=== PATIENT | male | born 1955 | race Caucasian/White ===

== ENCOUNTER 2025-10-17 10:26 | Inpatient (IN) | payer MEDICARE, MEDICAID ==
[~2025-10-17] VITALS: Ht 182.9 cm; Wt 133.4 kg
[~2025-10-17 10:26] MED LIST: AMLO2.5T45 MT; ASCO500C18 MT; ATOR10TA MT; BACL20TA MT; DOCU-138 MT; FURO-152 MT; GABA800T97 MT; IBUP-1455 MT
[2025-10-17] MEDS: SODIUM CHLORIDE 0.9% 1,000 ML IV ONE ×2 (10:57→14:28)
[2025-10-17 11:30] LABS: HEMATOCRIT. 34.0 % (42.0-52.0); HEMOGLOBIN. 11.2 g/dL (14.0-18.0); MEAN PLATELET VOLUME 8.4 fl (7.4-10.4); PLATELET 226 x1000/uL (130-400); RED BLOOD CELL COUNT 3.75 mill/uL (4.7-6.1); RED CELL DISTRIBUTION WIDTH 15.3 % (11.6-14.6)
[2025-10-17] MEDS: PIPERACILLIN/TAZO 3.375G/50ML 50 ML IV ONE (11:45)
[2025-10-17] MEDS: SODIUM CHLORIDE 0.9% (SEPSIS BOLUS) IV ONE (11:47)
[2025-10-17] MEDS: VANCOMYCIN 1G PREMIX 200 ML IV ONE (11:48)
[2025-10-17 11:52] LABS: TROPONIN I HIGH SENSITIVITY 27 ng/L (3.0-53)
[2025-10-17 12:21] LABS: ASPARTATE AMINOTRANSFERASE 35 IU/L (<34)
[2025-10-17 12:22] LABS: BILIRUBIN DIRECT 0.2 mg/dL (<=3.0); BILIRUBIN TOTAL 0.4 mg/dL (0.1-1.0); PROTEIN TOTAL 7.5 g/dL (6.0-8.3)
[2025-10-17 12:24] LABS: CREATININE 5.1 mg/dL (0.6-1.3); UREA NITROGEN BLOOD 150 mg/dL (9-23)
[2025-10-17] MEDS ORDERED: LORAZEPAM 2MG/ML UD SYRINGE IV PRN (13:15)
[2025-10-17] MEDS ORDERED: ACETAMINOPHEN 325MG TABLET PO PRN (13:15)
[2025-10-17] MEDS ORDERED: IPRATROPIUM/ALBUTEROL 0.5-3(2.5)MG/3ML NEB HHN PRN (13:15)
[2025-10-17] MEDS ORDERED: IBUPROFEN 600MG TABLET PO SCH (13:30)
[2025-10-17 14:09] LABS: PHOSPHORUS 9.3 mg/dL (2.5-4.9)
[2025-10-17] MEDS: FUROSEMIDE 20MG TABLET PO SCH (14:17)
[2025-10-17] MEDS: FERROUS SULFATE 325MG TABLET PO SCH (14:17)
[2025-10-17] MEDS: BACLOFEN 10MG TABLET PO SCH (14:17)
[2025-10-17] MEDS: DOCUSATE SODIUM 250MG CAPSULE PO NR (14:18)
[2025-10-17] MEDS: SODIUM CHLORIDE 0.9% 500 ML IV NR (14:18)
[2025-10-17] MEDS: PANTOPRAZOLE SODIUM 40 MG/VIAL IV SCH (14:18)
[2025-10-17] MEDS: AMLODIPINE 5MG TABLET PO NR (14:28)
[2025-10-17 15:18] LABS: CLARITY URINE TURBID (CLEAR); COLOR URINE DARK YELLOW (YELLOW); GLUCOSE URINE NEGATIVE (NEGATIVE); KETONES URINE NEGATIVE (NEGATIVE); LEUKOCYTE ESTERASE URINE 3+ (NEGATIVE); NITRITE URINE POSITIVE (NEGATIVE); OCCULT BLOOD URINE 3+ (NEGATIVE); PH URINE 8.0 (4.5-8.0); PROTEIN URINE 3+ (NEGATIVE); SPECIFIC GRAVITY URINE 1.015 (1.005-1.030); UROBILINOGEN URINE 1.0 E.U./dL (0.2-1.0)
[2025-10-17 15:23] LABS: SODIUM URINE RANDOM 49 mEq/L
[2025-10-17 15:30] LABS: *AMPHETAMINES SCREEN URINE NEGATIVE (NEGATIVE); *BARBITURATES SCREEN URINE NEGATIVE (NEGATIVE); *BENZODIAZEPINES SCREEN URINE NEGATIVE (NEGATIVE); *COCAINE SCREEN URINE NEGATIVE (NEGATIVE); CANNABINOID URINE SCREEN PRESUMPTIVE POSITIVE (NEGATIVE); ECSTASY MDMA SCREEN URINE NEGATIVE (NEGATIVE); METHADONE URINE SCREEN NEGATIVE (NEGATIVE); OPIATES URINE SCREEN NEGATIVE (NEGATIVE); PHENCYCLIDINE URINE SCREEN NEGATIVE (NEGATIVE)
[2025-10-17] MEDS: MIDODRINE HCL 2.5MG TABLET PO SCH (15:36)
[2025-10-17 15:49] LABS: OSMOLALITY URINE 460 mOsm/kg (500-850)
[2025-10-17 16:10] LABS: BACTERIA URINE 4+; SQUAMOUS EPITHELIAL CELL URINE FEW /lpf (RARE/1+); YEAST URINE NONE SEEN
[2025-10-17 16:12] LABS: WBC URINE TNTC /hpf (0-2)
[2025-10-17 17:48] LABS: INR 1.4
[2025-10-17 17:56] LABS: BAND% 1.0 % (1.0-6.0); LYMPHOCYTES % MANUAL 7.0 % (20.0-50.0); MONOCYTES % MANUAL 3.0 % (2.0-8.0); NEUTROPHILS % MANUAL 89.0 % (45.0-75.0); PLATELET ESTIMATE NORMAL
[2025-10-17 20:00] VITALS: BP 145/89; PULSE 98; RESP 20; TEMP 36.8; O2SAT 96
[2025-10-17] MEDS: ACETAMINOPHEN 325MG TABLET PO PRN (20:25)
[2025-10-17] MEDS: ATORVASTATIN CALCIUM 10MG TABLET PO SCH (20:26)
[2025-10-17] MEDS: SODIUM BICARBONATE 650MG TABLET PO SCH (20:53)
[2025-10-17] MEDS ORDERED: ENOXAPARIN 40MG/0.4ML SYR SUBCUT SCH (21:00)
[2025-10-17] MEDS: PIPERACILLIN/TAZO 3.375G/50ML 50 ML IV SCH (21:47)
[2025-10-17 23:17] VITALS: BP 145/89; PULSE 98; RESP 20; TEMP 36.8072
[2025-10-17 23:48] LABS: CREATININE 4.9 mg/dL (0.6-1.3)
[2025-10-18] VITALS: PULSE 99; RESP 20; TEMP 36.7; O2SAT 98
[2025-10-18 00:24] LABS: UREA NITROGEN BLOOD 122.0 mg/dL (9-23)
[2025-10-18 04:00] VITALS: BP 100/50; PULSE 89; RESP 18; TEMP 36.9; O2SAT 96
[2025-10-18 07:12] LABS: TRIGLYCERIDE 216 mg/dL (0-150)
[2025-10-18 07:13] LABS: LDL CHOLESTEROL 30 mg/dL (5-100); T4 FREE 0.88 ng/dL (0.89-1.76)
[2025-10-18 08:00] VITALS: BP 100/58; PULSE 90; RESP 18; TEMP 36.6; O2SAT 99
[2025-10-18] MEDS ORDERED: AMLODIPINE 2.5MG TABLET PO SCH (09:00)
[2025-10-18] MEDS ORDERED: VANCOMYCIN 1GM PMX (XELLIA) 200 ML IV SCH (10:00)
[2025-10-18 12:00] VITALS: BP 99/58; PULSE 98; RESP 18; TEMP 36.6; O2SAT 98
[2025-10-18] MEDS: SODIUM BICARBONATE 8.4% 50MEQ/50ML SYR IV SCH (12:09)
[2025-10-18] MEDS: AMIODARONE 200MG TABLET PO SCH (14:00)
[2025-10-18] MEDS ORDERED: LIDOCAINE HCL 1% 10 MG/ML 10ML VIAL ONE (14:19)
[2025-10-18 14:21] LABS: MEAN PLATELET VOLUME 8.3 fl (7.4-10.4); PLATELET 183 x1000/uL (130-400); RED BLOOD CELL COUNT 2.74 mill/uL (4.7-6.1); RED CELL DISTRIBUTION WIDTH 15.3 % (11.6-14.6)
[2025-10-18 14:22] LABS: CREATININE 5.3 mg/dL (0.6-1.3); UREA NITROGEN BLOOD 148 mg/dL (9-23)
[2025-10-18 14:24] LABS: PHOSPHORUS 8.1 mg/dL (2.5-4.9)
[2025-10-18 14:25] LABS: HEMATOCRIT. 24.8 % (42.0-52.0); HEMOGLOBIN. 8.2 g/dL (14.0-18.0)
[2025-10-18 15:46] LABS: LYMPHOCYTES % MANUAL 6.0 % (20.0-50.0); MONOCYTES % MANUAL 7.0 % (2.0-8.0); NEUTROPHILS % MANUAL 87.0 % (45.0-75.0); PLATELET ESTIMATE NORMAL
[2025-10-18 16:00] VITALS: BP 96/63; PULSE 16; RESP 17; TEMP 36.5; O2SAT 99
[2025-10-18] MEDS ORDERED: SODIUM CHLORIDE 0.9% 1,000 ML IV SCH (16:30)
[2025-10-18 20:00] VITALS: BP 87/44; PULSE 109; RESP 17; TEMP 36.3; O2SAT 100
[2025-10-18] MEDS: SODIUM BICARBONATE 100 MEQ in SODIUM CHLORIDE 0.45% 900 ML IV SCH (20:56)
[2025-10-18] MEDS: MEROPENEM 500MG/50ML 50 ML IV SCH (21:01)
[2025-10-19] VITALS (42 sets, daily range): BP systolic 65–153; BP diastolic 36–140; PULSE 63–181; RESP 9–34; TEMP 35.9–36.8; O2SAT 79–100
[2025-10-19] MEDS: SODIUM CHLORIDE 0.9% 500 ML IV ONE (00:27)
[2025-10-19 06:38] LABS: HEMATOCRIT. 29.9 % (42.0-52.0); HEMOGLOBIN. 10.0 g/dL (14.0-18.0); MEAN PLATELET VOLUME 8.9 fl (7.4-10.4); PLATELET 147 x1000/uL (130-400); RED BLOOD CELL COUNT 3.32 mill/uL (4.7-6.1); RED CELL DISTRIBUTION WIDTH 15.4 % (11.6-14.6)
[2025-10-19 07:56] LABS: CREATININE 5.6 mg/dL (0.6-1.3); UREA NITROGEN BLOOD 183 mg/dL (9-23)
[2025-10-19 07:58] LABS: PHOSPHORUS 8.1 mg/dL (2.5-4.9)
[2025-10-19] MEDS: FOLIC ACID/VITAMIN B COMP W-C TABLET PO SCH (10:00)
[2025-10-19 10:12] LABS: BAND% 4.0 % (1.0-6.0); LYMPHOCYTES % MANUAL 9.0 % (20.0-50.0); MONOCYTES % MANUAL 6.0 % (2.0-8.0); NEUTROPHILS % MANUAL 81.0 % (45.0-75.0); PLATELET ESTIMATE NORMAL
[2025-10-19 10:19] LABS: BG BASE EXCESS -10.0 mmol/L (-2.0-3.0); BG CARBOXYHEMOGLOBIN 0.0 % (0.5-1.5); BG DEOXYHEMOGLOBIN 2.4 % (0.0-5.0); BG FRACTION INSPIRED OXYGEN 21; BG HCO3 ACT 14.3 mmol/L (21.0-28.0); BG METHEMOGLOBIN 0.3 % (0.5-1.5); BG OXYGEN SATURATION 97.6 % (94.0-98.0); BG OXYHEMOGLOBIN 97.3 % (94.0-98.0); BG PCO2 26.7 mmHg (35.0-48.0); BG PH 7.347 (7.350-7.450); BG PO2 107.5 mmHg (83.0-108.0); BG SAMPLE SITE RIGHT RADIAL; BG TOTAL HEMOGLOBIN 10.5 g/dL (13.5-17.5); BG VENT MODE ROOM AIR
[2025-10-19] MEDS ORDERED: LIDOCAINE HCL 1% 10 MG/ML 10ML VIAL ONE (11:29)
[2025-10-19] MEDS: DEXT 5%/0.45% NACL 1000ML 1,000 ML IV SCH (11:39)
[2025-10-19] MEDS: CALCIUM ACETATE 667MG CAPSULE PO SCH (12:40)
[2025-10-19] MEDS: SODIUM CHLORIDE 0.9% 500 ML IV NR (13:28)
[2025-10-19 16:34] LABS: HEPATITIS A AB IGM NEGATIVE (Negative)
[2025-10-19 16:35] LABS: HEPATITIS B CORE AB IGM NEGATIVE (Negative); HEPATITIS C AB NON REACTIVE (Neg) (Negative)
[2025-10-19] MEDS: VANCOMYCIN 2GM PMX (XELLIA) 400 ML IV SCH (17:31)
[2025-10-19] MEDS: MIDODRINE HCL 5MG TABLET PO SCH (18:14)
[2025-10-19 19:26] LABS: CREATININE 5.4 mg/dL (0.6-1.3)
[2025-10-19 19:37] LABS: UREA NITROGEN BLOOD 161.0 mg/dL (9-23)
[2025-10-19] MEDS: NOREPINEPHRINE 8MG/250ML PMX 250 ML IV PRN (20:00)
[2025-10-19 22:52] LABS: PHOSPHORUS 7.8 mg/dL (2.5-4.9)
[2025-10-19] MEDS: SODIUM CHLORIDE 0.9% 250 ML IV ONE (23:45)
[2025-10-20] VITALS (96 sets, daily range): BP systolic 72–143; BP diastolic 51–118; PULSE 80–142; RESP 9–25; TEMP 36.3918–36.8; O2SAT 94–100
[2025-10-20 02:46] LABS: UREA NITROGEN BLOOD 74 mg/dL (9-23)
[2025-10-20 02:48] LABS: PHOSPHORUS 4.8 mg/dL (2.5-4.9)
[2025-10-20 03:05] LABS: CREATININE 3.3 mg/dL (0.6-1.3)
[2025-10-20] MEDS: SODIUM CHLORIDE 0.9% 1,000 ML IV ONE (04:45)
[2025-10-20] MEDS: ONDANSETRON HCL 4MG/2ML INJ IV PRN (04:45)
[2025-10-20] MEDS: PANTOPRAZOLE SODIUM 40 MG/VIAL IV NR (04:50)
[2025-10-20 06:20] LABS: HEMATOCRIT. 30.7 % (42.0-52.0); HEMOGLOBIN. 10.1 g/dL (14.0-18.0); MEAN PLATELET VOLUME 9.1 fl (7.4-10.4); PLATELET 130 x1000/uL (130-400); RED BLOOD CELL COUNT 3.42 mill/uL (4.7-6.1); RED CELL DISTRIBUTION WIDTH 15.7 % (11.6-14.6)
[2025-10-20] MEDS: MIDODRINE HCL 5MG TABLET PO SCH (10:30)
[2025-10-20] MEDS ORDERED: LIDOCAINE HCL 1% 10 MG/ML 10ML VIAL ONE (14:37)
[2025-10-20] MEDS: BLOOD SUGAR DIAGNOSTIC STRIP TEST SCH (17:15)
[2025-10-20 21:02] LABS: LYMPHOCYTES % MANUAL 9.0 % (20.0-50.0); MONOCYTES % MANUAL 7.0 % (2.0-8.0); NEUTROPHILS % MANUAL 84.0 % (45.0-75.0); PLATELET ESTIMATE NORMAL
[2025-10-20] MEDS: MEROPENEM 1,000MG in SODIUM CHLORIDE 0.9% 100ML IV SCH (22:01)
[2025-10-21] VITALS (84 sets, daily range): BP systolic 86–129; BP diastolic 48–89; PULSE 74–124; RESP 9–23; TEMP 36.1–37.1; O2SAT 88–100
[2025-10-21] MEDS: IPRATROPIUM/ALBUTEROL 0.5-3(2.5)MG/3ML NEB HHN SCH (01:11)
[2025-10-21 06:23] LABS: BASOPHILS % 0.1 % (0.0-2.0); EOSINOPHILS % 0.1 % (0.0-5.0); HEMATOCRIT. 25.5 % (42.0-52.0); HEMOGLOBIN. 8.6 g/dL (14.0-18.0); LYMPHOCYTES % 8.5 % (20.0-50.0); MEAN PLATELET VOLUME 8.4 fl (7.4-10.4); MONOCYTES % 7.6 % (2.0-8.0); NEUTROPHILS % 83.7 % (40.0-76.0); PLATELET 98 x1000/uL (130-400); RED BLOOD CELL COUNT 2.86 mill/uL (4.7-6.1); RED CELL DISTRIBUTION WIDTH 16.0 % (11.6-14.6)
[2025-10-21 06:35] LABS: CREATININE 2.8 mg/dL (0.6-1.3); UREA NITROGEN BLOOD 67.0 mg/dL (9-23)
[2025-10-21] MEDS ORDERED: IPRATROPIUM/ALBUTEROL 0.5-3(2.5)MG/3ML NEB HHN PRN (08:15)
[2025-10-21 09:43] LABS: PHOSPHORUS 3.4 mg/dL (2.5-4.9)
[2025-10-21] MEDS: AMIODARONE 200MG TABLET PO SCH (10:27)
[2025-10-21] MEDS: KCL 20MEQ/100ML PREMIX 100 ML IV NR (10:28)
[2025-10-21] MEDS ORDERED: DEXTROSE 50% WATER 50ML SYRINGE IV PRN (14:30)
[2025-10-21] MEDS: BLOOD SUGAR DIAGNOSTIC STRIP TEST SCH (16:34)
[2025-10-21] MEDS: INSULIN LISPRO 100 UNITS/ML SUBCUT SCH (16:34)
[2025-10-21] MEDS: MIDODRINE HCL 5MG TABLET PO SCH (21:11)
[2025-10-21] MEDS: MEROPENEM 500MG/50ML 50 ML IV SCH (21:12)
[2025-10-22] VITALS (91 sets, daily range): BP systolic 70–127; BP diastolic 46–92; PULSE 76–148; RESP 9–26; TEMP 36.4–37.1; O2SAT 98–100
[2025-10-22 05:24] LABS: HEMATOCRIT. 23.4 % (42.0-52.0); HEMOGLOBIN. 7.7 g/dL (14.0-18.0); LYMPHOCYTES % 8.3 % (20.0-50.0); MEAN PLATELET VOLUME 8.3 fl (7.4-10.4); MONOCYTES % 7.4 % (2.0-8.0); NEUTROPHILS % 84.1 % (40.0-76.0); PLATELET 85 x1000/uL (130-400); RED BLOOD CELL COUNT 2.61 mill/uL (4.7-6.1); RED CELL DISTRIBUTION WIDTH 15.7 % (11.6-14.6)
[2025-10-22 05:25] LABS: BASOPHILS % 0.0 % (0.0-2.0); EOSINOPHILS % 0.2 % (0.0-5.0)
[2025-10-22 05:40] LABS: CREATININE 2.5 mg/dL (0.6-1.3); UREA NITROGEN BLOOD 61 mg/dL (9-23)
[2025-10-22 05:42] LABS: PHOSPHORUS 2.8 mg/dL (2.5-4.9)
[2025-10-22] MEDS: POTASSIUM CHLORIDE 20MEQ/PACKET PO NR (08:39)
[2025-10-22] MEDS: CEFTAZIDIME PENTAHYDRATE 2 G in DEXT 5% WATER 100 ML IV SCH (13:00)
[2025-10-22] MEDS: VANCOMYCIN 750MG PREMIX 150 ML IV SCH (20:14)
[2025-10-23] VITALS (95 sets, daily range): BP systolic 84–128; BP diastolic 51–87; PULSE 98–135; RESP 10–29; TEMP 36.8–37.3; O2SAT 0–100
[2025-10-23] MEDS: NOREPINEPHRINE 32 MG in DEXT 5% WATER 218 ML IV PRN (01:17)
[2025-10-23 05:47] LABS: BASOPHILS % 0.1 % (0.0-2.0); EOSINOPHILS % 0.3 % (0.0-5.0); HEMATOCRIT. 26.0 % (42.0-52.0); HEMOGLOBIN. 8.4 g/dL (14.0-18.0); LYMPHOCYTES % 8.3 % (20.0-50.0); MEAN PLATELET VOLUME 8.5 fl (7.4-10.4); MONOCYTES % 7.4 % (2.0-8.0); NEUTROPHILS % 83.9 % (40.0-76.0); PLATELET 97 x1000/uL (130-400); RED BLOOD CELL COUNT 2.85 mill/uL (4.7-6.1); RED CELL DISTRIBUTION WIDTH 15.6 % (11.6-14.6)
[2025-10-23 05:55] LABS: CREATININE 2.5 mg/dL (0.6-1.3); UREA NITROGEN BLOOD 66 mg/dL (9-23)
[2025-10-23 05:57] LABS: PHOSPHORUS 2.7 mg/dL (2.5-4.9)
[2025-10-23] MEDS: MIDODRINE HCL 5MG TABLET PO SCH (21:55)
[2025-10-24] VITALS (111 sets, daily range): BP systolic 65–207; BP diastolic 20–166; PULSE 87–131; RESP 9–38; TEMP 36.7–37; O2SAT 95–100
[2025-10-24 05:27] LABS: BASOPHILS % 0.0 % (0.0-2.0); EOSINOPHILS % 0.6 % (0.0-5.0); HEMATOCRIT. 22.8 % (42.0-52.0); HEMOGLOBIN. 7.6 g/dL (14.0-18.0); LYMPHOCYTES % 8.5 % (20.0-50.0); MEAN PLATELET VOLUME 8.8 fl (7.4-10.4); MONOCYTES % 7.6 % (2.0-8.0); NEUTROPHILS % 83.3 % (40.0-76.0); PLATELET 102 x1000/uL (130-400); RED BLOOD CELL COUNT 2.53 mill/uL (4.7-6.1); RED CELL DISTRIBUTION WIDTH 15.0 % (11.6-14.6)
[2025-10-24 05:45] LABS: CREATININE 2.2 mg/dL (0.6-1.3)
[2025-10-24 05:46] LABS: UREA NITROGEN BLOOD 69.0 mg/dL (9-23)
[2025-10-24 05:56] LABS: C REACTIVE PROTEIN HIGH SENS 76.15 mg/l (<1.00)
[2025-10-24 06:34] LABS: ERYTHROCYTE SEDIMENTATION RATE 121 mm/hr (0-20)
[2025-10-24] MEDS: FLUDROCORTISONE ACETATE 0.1MG TABLET PO SCH (09:27)
[2025-10-24 12:17] LABS: CREATININE 2.0 mg/dL (0.6-1.3); UREA NITROGEN BLOOD 48.0 mg/dL (9-23)
[2025-10-24] MEDS: GUAIFENESIN 200MG/10ML SUGAR FREE UDC PO SCH (18:04)
[2025-10-24] MEDS: CLONIDINE 0.1MG TABLET PO PRN (19:13)
[2025-10-24] MEDS ORDERED: CEFTAZIDIME PENTAHYDRATE 1 G in DEXTROSE 5% WATER 50 ML IV SCH (21:00)
[2025-10-24] MEDS ORDERED: VANCOMYCIN 750MG PREMIX 150 ML IV SCH (21:00)
[2025-10-24] MEDS: CEFTAZIDIME PENTAHYDRATE 2 G in DEXT 5% WATER 100 ML IV SCH (21:21)
[2025-10-25] VITALS (103 sets, daily range): BP systolic 67–204; BP diastolic 39–161; PULSE 79–117; RESP 8–30; TEMP 36.1–36.7; O2SAT 97–100
[2025-10-25] MEDS: HALOPERIDOL LACTATE 5MG/ML VIAL IM NR (01:02)
[2025-10-25] MEDS: ACETYLCYSTEINE 200MG/ML 20% VIAL 4ML INH SCH (01:55)
[2025-10-25 05:50] LABS: BASOPHILS % 0.1 % (0.0-2.0); EOSINOPHILS % 0.7 % (0.0-5.0); HEMATOCRIT. 22.1 % (42.0-52.0); HEMOGLOBIN. 7.2 g/dL (14.0-18.0); LYMPHOCYTES % 10.3 % (20.0-50.0); MEAN PLATELET VOLUME 8.9 fl (7.4-10.4); MONOCYTES % 7.8 % (2.0-8.0); NEUTROPHILS % 81.1 % (40.0-76.0); PLATELET 123 x1000/uL (130-400); RED BLOOD CELL COUNT 2.41 mill/uL (4.7-6.1); RED CELL DISTRIBUTION WIDTH 15.3 % (11.6-14.6)
[2025-10-25 05:52] LABS: CREATININE 1.9 mg/dL (0.6-1.3); UREA NITROGEN BLOOD 61.0 mg/dL (9-23)
[2025-10-25] MEDS: MAGNESIUM 2 G PREMIX 50 ML IV NR (11:00)
[2025-10-25] MEDS: POLYETHYLENE GLYCOL 3350 (17GM) 1 DOSE PACK PO NR (11:43)
[2025-10-25] MEDS: MIDODRINE HCL 5MG TABLET PO PRN (11:44)
[2025-10-26] VITALS (103 sets, daily range): BP systolic 77–111; BP diastolic 47–79; PULSE 85–117; RESP 10–22; TEMP 35.9–37.4; O2SAT 92–100
[2025-10-26 05:41] LABS: BASOPHILS % 0.1 % (0.0-2.0); EOSINOPHILS % 1.1 % (0.0-5.0); HEMATOCRIT. 21.6 % (42.0-52.0); LYMPHOCYTES % 11.6 % (20.0-50.0); MEAN PLATELET VOLUME 8.8 fl (7.4-10.4); MONOCYTES % 7.2 % (2.0-8.0); NEUTROPHILS % 80.0 % (40.0-76.0); PLATELET 137 x1000/uL (130-400); RED BLOOD CELL COUNT 2.37 mill/uL (4.7-6.1); RED CELL DISTRIBUTION WIDTH 15.6 % (11.6-14.6)
[2025-10-26 05:56] LABS: CREATININE 1.6 mg/dL (0.6-1.3); UREA NITROGEN BLOOD 54.0 mg/dL (9-23)
[2025-10-26 06:29] LABS: HEMOGLOBIN. 6.8 g/dL (14.0-18.0)
[2025-10-26] MEDS: POTASSIUM CHLORIDE 20MEQ/PACKET PO NR (08:36)
[2025-10-26] MEDS ORDERED: SODIUM CHLORIDE 0.45% 500 ML IV ONE (11:45)
[2025-10-26] MEDS: LACTATED RINGERS 500 ML IV ONE (12:10)
[2025-10-26] MEDS: VANCOMYCIN 750MG PREMIX 150 ML IV SCH (15:44)
[2025-10-27] VITALS (18 sets, daily range): BP systolic 87–113; BP diastolic 59–85; PULSE 95–126; RESP 13–24; TEMP 36.1–37.3; O2SAT 97–100
[2025-10-27 07:24] LABS: BASOPHILS % 0.3 % (0.0-2.0); EOSINOPHILS % 1.2 % (0.0-5.0); HEMATOCRIT. 26.4 % (42.0-52.0); HEMOGLOBIN. 8.5 g/dL (14.0-18.0); LYMPHOCYTES % 11.3 % (20.0-50.0); MEAN PLATELET VOLUME 8.9 fl (7.4-10.4); MONOCYTES % 5.5 % (2.0-8.0); NEUTROPHILS % 81.7 % (40.0-76.0); PLATELET 155 x1000/uL (130-400); RED BLOOD CELL COUNT 2.92 mill/uL (4.7-6.1); RED CELL DISTRIBUTION WIDTH 16.5 % (11.6-14.6)
[2025-10-27 07:33] LABS: CREATININE 1.3 mg/dL (0.6-1.3); UREA NITROGEN BLOOD 37.0 mg/dL (9-23)
[2025-10-27 07:35] LABS: PHOSPHORUS 2.2 mg/dL (2.5-4.9)
[2025-10-27] MEDS: POTASSIUM PHOSPHATE 20 MMOL in DEXT 5% WATER 243.3333 ML IV SCH (10:53)
[2025-10-27] MEDS ORDERED: POTASSIUM PHOSPHATE 15 MMOL in DEXT 5% WATER 245 ML IV ONE (14:15)
[2025-10-27] MEDS ORDERED: CALCIUM GLUCONATE 1,000 MG in DEXT 5% WATER 90 ML IV ONE (14:15)
[2025-10-27] MEDS: LACTATED RINGERS 500 ML IV ONE (15:13)
[2025-10-27] MEDS: LACTATED RINGERS 1,000 ML IV SCH (15:13)
[2025-10-27] MEDS: VANCOMYCIN 1GM PMX (XELLIA) 200 ML IV SCH (15:45)
[2025-10-27] MEDS: CALCIUM GLUCONATE 1GM PREMIX 50ML IV SCH (18:46)
[2025-10-28] VITALS (15 sets, daily range): BP systolic 69–125; BP diastolic 40–99; PULSE 84–122; RESP 13–31; TEMP 36.6–36.9; O2SAT 95–100
[2025-10-28 07:03] LABS: BASOPHILS % 0.5 % (0.0-2.0); EOSINOPHILS % 0.8 % (0.0-5.0); HEMATOCRIT. 24.4 % (42.0-52.0); HEMOGLOBIN. 7.9 g/dL (14.0-18.0); LYMPHOCYTES % 13.3 % (20.0-50.0); MEAN PLATELET VOLUME 8.8 fl (7.4-10.4); MONOCYTES % 5.0 % (2.0-8.0); NEUTROPHILS % 80.4 % (40.0-76.0); PLATELET 129 x1000/uL (130-400); RED BLOOD CELL COUNT 2.70 mill/uL (4.7-6.1); RED CELL DISTRIBUTION WIDTH 15.8 % (11.6-14.6)
[2025-10-28 07:29] LABS: CREATININE 1.4 mg/dL (0.6-1.3); UREA NITROGEN BLOOD 43 mg/dL (9-23)
[2025-10-28 07:31] LABS: PHOSPHORUS 2.0 mg/dL (2.5-4.9)
[2025-10-28] MEDS: MAGNESIUM 2 G PREMIX 50 ML IV NR (08:58)
[2025-10-28] MEDS: MIDODRINE HCL 5MG TABLET PO SCH (09:00)
[2025-10-28] MEDS: AMIODARONE 200MG TABLET PO SCH (12:38)
[2025-10-28] MEDS: CEFTAZIDIME PENTAHYDRATE 2 G in DEXT 5% WATER 100 ML IV SCH (13:56)
[2025-10-28] MEDS: SODIUM CHLORIDE 0.9% 500 ML IV ONE (17:47)
[2025-10-28] MEDS: MIDODRINE HCL 5MG TABLET PO PRN ×2 (18:57→22:23)
[2025-10-29] VITALS (21 sets, daily range): BP systolic 71–103; BP diastolic 52–85; PULSE 82–101; RESP 18–37; TEMP 36.9–37.5; O2SAT 98–100
[2025-10-29] MEDS: MIDODRINE HCL 5MG TABLET PO SCH (05:14)
[2025-10-29 07:36] LABS: BASOPHILS % 0.4 % (0.0-2.0); EOSINOPHILS % 1.2 % (0.0-5.0); HEMATOCRIT. 23.7 % (42.0-52.0); HEMOGLOBIN. 7.7 g/dL (14.0-18.0); LYMPHOCYTES % 14.8 % (20.0-50.0); MEAN PLATELET VOLUME 8.9 fl (7.4-10.4); MONOCYTES % 4.8 % (2.0-8.0); NEUTROPHILS % 78.8 % (40.0-76.0); PLATELET 140 x1000/uL (130-400); RED BLOOD CELL COUNT 2.64 mill/uL (4.7-6.1); RED CELL DISTRIBUTION WIDTH 15.9 % (11.6-14.6)
[2025-10-29 07:58] LABS: CREATININE 1.6 mg/dL (0.6-1.3); UREA NITROGEN BLOOD 38 mg/dL (9-23)
[2025-10-29 08:00] LABS: PHOSPHORUS 2.1 mg/dL (2.5-4.9)
[2025-10-29] MEDS: MAGNESIUM 2 G PREMIX 50 ML IV ONE (09:41)
[2025-10-29] MEDS: POTASSIUM PHOSPHATE 15 MMOL in DEXT 5% WATER 245 ML IV ONE (10:48)
[2025-10-29] MEDS ORDERED: POTASSIUM PHOSPHATE 20 MMOL in DEXT 5% WATER 243.3333 ML IV NR (11:00)
[2025-10-30] VITALS (19 sets, daily range): BP systolic 74–96; BP diastolic 45–65; PULSE 76–98; RESP 18–32; TEMP 36.33624–37.1; O2SAT 96–100
[2025-10-30 07:13] LABS: BASOPHILS % 0.5 % (0.0-2.0); EOSINOPHILS % 1.1 % (0.0-5.0); HEMATOCRIT. 22.7 % (42.0-52.0); HEMOGLOBIN. 7.4 g/dL (14.0-18.0); LYMPHOCYTES % 11.8 % (20.0-50.0); MEAN PLATELET VOLUME 8.8 fl (7.4-10.4); MONOCYTES % 4.9 % (2.0-8.0); NEUTROPHILS % 81.7 % (40.0-76.0); PLATELET 150 x1000/uL (130-400); RED BLOOD CELL COUNT 2.54 mill/uL (4.7-6.1); RED CELL DISTRIBUTION WIDTH 15.7 % (11.6-14.6)
[2025-10-30 07:38] LABS: CREATININE 1.6 mg/dL (0.6-1.3); UREA NITROGEN BLOOD 48 mg/dL (9-23)
[2025-10-30 07:40] LABS: PHOSPHORUS 2.6 mg/dL (2.5-4.9)
[2025-10-30 12:38] LABS: INR 1.3
[2025-10-30] MEDS: PANTOPRAZOLE SODIUM 40 MG/VIAL IV SCH (20:54)
[2025-10-31] VITALS (92 sets, daily range): BP systolic 73–141; BP diastolic 43–93; PULSE 67–94; RESP 12–26; TEMP 36.6–37.2; O2SAT 93–100
[2025-10-31] MEDS: NOREPINEPHRINE 8MG/250ML PMX 250 ML IV PRN (02:07)
[2025-10-31 06:49] LABS: FOLIC ACID (FOLATE) SERUM 9.39 ng/mL (>5.38); VITAMIN B12 SERUM 1152 pg/mL (211-911)
[2025-10-31 07:44] LABS: CREATININE 1.5 mg/dL (0.6-1.3)
[2025-10-31 07:45] LABS: PROTEIN TOTAL 6.3 g/dL (6.0-8.3); UREA NITROGEN BLOOD 34 mg/dL (9-23)
[2025-10-31 07:46] LABS: ASPARTATE AMINOTRANSFERASE 24 IU/L (<34)
[2025-10-31 07:47] LABS: BILIRUBIN DIRECT 0.3 mg/dL (<=3.0); BILIRUBIN TOTAL 0.6 mg/dL (0.1-1.0); PHOSPHORUS 2.3 mg/dL (2.5-4.9)
[2025-10-31 07:48] LABS: BASOPHILS % 0.4 % (0.0-2.0); EOSINOPHILS % 1.1 % (0.0-5.0); HEMATOCRIT. 27.2 % (42.0-52.0); HEMOGLOBIN. 9.2 g/dL (14.0-18.0); LYMPHOCYTES % 11.2 % (20.0-50.0); MEAN PLATELET VOLUME 9.0 fl (7.4-10.4); MONOCYTES % 5.1 % (2.0-8.0); NEUTROPHILS % 82.2 % (40.0-76.0); PLATELET 162 x1000/uL (130-400); RED BLOOD CELL COUNT 3.06 mill/uL (4.7-6.1); RED CELL DISTRIBUTION WIDTH 14.8 % (11.6-14.6)
[2025-10-31] MEDS: PANTOPRAZOLE SODIUM 40 MG/VIAL IV SCH (08:32)
[2025-10-31] MEDS ORDERED: SUCRALFATE 1G TABLET NG SCH (09:00)
[2025-10-31] MEDS: POTASSIUM PHOSPHATE 30 MMOL in DEXT 5% WATER 490 ML IV SCH (13:58)
[2025-10-31] MEDS ORDERED: ALBUTEROL (0.5%) 2.5MG/0.5ML NEB HHN ONE (15:10)
[2025-10-31] MEDS ORDERED: IPRATROPIUM BROMIDE (0.02%) 0.5MG/2.5ML NEB ONE (15:10)
[2025-10-31] MEDS ORDERED: NOREPINEPHRINE 8 MG in DEXT 5% WATER 242 ML IV PRN (17:15)
[2025-11-01] VITALS (89 sets, daily range): BP systolic 76–108; BP diastolic 50–81; PULSE 80–101; RESP 14–23; TEMP 36.6–37; O2SAT 96–100
[2025-11-01 05:56] LABS: BASOPHILS % 0.5 % (0.0-2.0); EOSINOPHILS % 1.3 % (0.0-5.0); HEMATOCRIT. 26.7 % (42.0-52.0); HEMOGLOBIN. 8.6 g/dL (14.0-18.0); LYMPHOCYTES % 13.1 % (20.0-50.0); MEAN PLATELET VOLUME 8.3 fl (7.4-10.4); MONOCYTES % 5.2 % (2.0-8.0); NEUTROPHILS % 79.9 % (40.0-76.0); PLATELET 136 x1000/uL (130-400); RED BLOOD CELL COUNT 2.94 mill/uL (4.7-6.1); RED CELL DISTRIBUTION WIDTH 15.4 % (11.6-14.6)
[2025-11-01 06:11] LABS: CREATININE 1.2 mg/dL (0.6-1.3); UREA NITROGEN BLOOD 28 mg/dL (9-23)
[2025-11-01 06:13] LABS: PHOSPHORUS 2.6 mg/dL (2.5-4.9)
[2025-11-01] MEDS: POTASSIUM CHLORIDE 20MEQ/PACKET PO NR (08:41)
[2025-11-01] MEDS: AMIODARONE 200MG TABLET PO SCH (08:42)
[2025-11-01] MEDS: MAGNESIUM 2 G PREMIX 50 ML IV NR (08:42)
[2025-11-01] MEDS: MIDODRINE HCL 5MG TABLET PO SCH (14:24)
[2025-11-01] MEDS: VANCOMYCIN 2GM PMX (XELLIA) 400 ML IV NR (16:26)
[2025-11-02] VITALS (93 sets, daily range): BP systolic 80–112; BP diastolic 47–80; PULSE 78–95; RESP 11–27; TEMP 36.05844–37; O2SAT 96–100
[2025-11-02 06:56] LABS: BASOPHILS % 1.0 % (0.0-2.0); EOSINOPHILS % 2.1 % (0.0-5.0); HEMATOCRIT. 25.6 % (42.0-52.0); HEMOGLOBIN. 8.4 g/dL (14.0-18.0); LYMPHOCYTES % 17.3 % (20.0-50.0); MEAN PLATELET VOLUME 8.8 fl (7.4-10.4); MONOCYTES % 4.5 % (2.0-8.0); NEUTROPHILS % 75.1 % (40.0-76.0); PLATELET 118 x1000/uL (130-400); RED BLOOD CELL COUNT 2.81 mill/uL (4.7-6.1); RED CELL DISTRIBUTION WIDTH 15.2 % (11.6-14.6)
[2025-11-02 07:27] LABS: CREATININE 1.2 mg/dL (0.6-1.3)
[2025-11-02 07:28] LABS: UREA NITROGEN BLOOD 30 mg/dL (9-23)
[2025-11-02 07:30] LABS: PHOSPHORUS 1.6 mg/dL (2.5-4.9)
[2025-11-02] MEDS: POTASSIUM CHLORIDE 20MEQ/PACKET PO NR (09:13)
[2025-11-02] MEDS: POTASSIUM PHOSPHATE 30 MMOL in SODIUM CHLORIDE 0.9% 490 ML IV NR (09:39)
[2025-11-02] MEDS ORDERED: POTASSIUM PHOSPHATE 30 MMOL in DEXT 5% WATER 490 ML IV ONE (10:00)
[2025-11-02] MEDS ORDERED: VANCOMYCIN 1GM/200ML PMX (BAXTER) IV SCH (16:00)
[2025-11-02] MEDS: SODIUM CHLORIDE 0.9% 500 ML IV NR (16:16)
[2025-11-03] VITALS (100 sets, daily range): BP systolic 60–148; BP diastolic 40–100; PULSE 74–125; RESP 10–26; TEMP 36.1–36.9; O2SAT 97–100
[2025-11-03 08:08] LABS: BASOPHILS % 0.7 % (0.0-2.0); EOSINOPHILS % 1.8 % (0.0-5.0); HEMATOCRIT. 27.6 % (42.0-52.0); HEMOGLOBIN. 9.0 g/dL (14.0-18.0); LYMPHOCYTES % 18.2 % (20.0-50.0); MEAN PLATELET VOLUME 8.6 fl (7.4-10.4); MONOCYTES % 5.5 % (2.0-8.0); NEUTROPHILS % 73.8 % (40.0-76.0); PLATELET 105 x1000/uL (130-400); RED BLOOD CELL COUNT 3.09 mill/uL (4.7-6.1); RED CELL DISTRIBUTION WIDTH 15.7 % (11.6-14.6)
[2025-11-03 08:14] LABS: CREATININE 1.1 mg/dL (0.6-1.3)
[2025-11-03 08:15] LABS: UREA NITROGEN BLOOD 27 mg/dL (9-23)
[2025-11-03 08:17] LABS: PHOSPHORUS 2.4 mg/dL (2.5-4.9)
[2025-11-03] MEDS ORDERED: IPRATROPIUM/ALBUTEROL 0.5-3(2.5)MG/3ML NEB HHN SCH (12:00)
[2025-11-03] MEDS ORDERED: RACEPINEPHRINE 2.25% 0.5ML NEB VIAL HHN PRN (12:30)
[2025-11-03 13:02] LABS: BG BASE EXCESS -5.8 mmol/L (-2.0-3.0); BG CARBOXYHEMOGLOBIN 1.4 % (0.5-1.5); BG DEOXYHEMOGLOBIN 8.9 % (0.0-5.0); BG FRACTION INSPIRED OXYGEN 100; BG HCO3 ACT 22.7 mmol/L (21.0-28.0); BG METHEMOGLOBIN 0.1 % (0.5-1.5); BG OXYGEN SATURATION 91.0 % (94.0-98.0); BG OXYHEMOGLOBIN 89.6 % (94.0-98.0); BG PCO2 57.9 mmHg (35.0-48.0); BG PEEP (cmH2O) 5.0 cmH2O; BG PH 7.211 (7.350-7.450); BG PO2 70.7 mmHg (83.0-108.0); BG SAMPLE SITE RIGHT RADIAL; BG TIDAL VOLUME(mL) 500.0 mL; BG TOTAL HEMOGLOBIN 12.7 g/dL (13.5-17.5); BG VENT MODE VENT - AC; BG VENT RATE 18.0 set
[2025-11-03] MEDS: LORAZEPAM 2MG/ML UD SYRINGE IV PRN (13:40)
[2025-11-03] MEDS: PROPOFOL 10MG/ML 100ML 100 ML IV PRN (13:40)
[2025-11-03] MEDS ORDERED: LEVETIRACETAM 1,500MG in NACL 100ML PREMIX IV ONE (13:45)
[2025-11-03] MEDS ORDERED: MAGNESIUM 4 G PREMIX 100 ML IV SCH (14:00)
[2025-11-03] MEDS ORDERED: NOREPINEPHRINE 8 MG in DEXT 5% WATER 242 ML IV PRN (14:00)
[2025-11-03] MEDS ORDERED: SODIUM CHLORIDE 0.9% 500 ML IV SCH (14:00)
[2025-11-03] MEDS: NOREPINEPHRINE 8MG/250ML PMX 250ML IV PRN (14:09)
[2025-11-03] MEDS: LEVETIRACETAM 1500MG PREMIX 100 ML IV NR (14:31)
[2025-11-03 14:56] LABS: PLATELET 95 x1000/uL (130-400); RED BLOOD CELL COUNT 3.14 mill/uL (4.7-6.1); RED CELL DISTRIBUTION WIDTH 16.5 % (11.6-14.6)
[2025-11-03 15:01] LABS: CREATININE 1.1 mg/dL (0.6-1.3); UREA NITROGEN BLOOD 24 mg/dL (9-23)
[2025-11-03 15:03] LABS: PHOSPHORUS 3.4 mg/dL (2.5-4.9)
[2025-11-03 15:09] LABS: TROPONIN I HIGH SENSITIVITY 12 ng/L (3.0-53)
[2025-11-03 16:41] LABS: BG BASE EXCESS -1.0 mmol/L (-2.0-3.0); BG CARBOXYHEMOGLOBIN 0.3 % (0.5-1.5); BG DEOXYHEMOGLOBIN 0.3 % (0.0-5.0); BG FRACTION INSPIRED OXYGEN 100; BG HCO3 ACT 24.3 mmol/L (21.0-28.0); BG METHEMOGLOBIN 0.3 % (0.5-1.5); BG OXYGEN SATURATION 99.7 % (94.0-98.0); BG OXYHEMOGLOBIN 99.1 % (94.0-98.0); BG PCO2 42.9 mmHg (35.0-48.0); BG PEEP (cmH2O) 5.0 cmH2O; BG PH 7.371 (7.350-7.450); BG PO2 262.0 mmHg (83.0-108.0); BG SAMPLE SITE RIGHT RADIAL; BG TIDAL VOLUME(mL) 500.0 mL; BG TOTAL HEMOGLOBIN 11.0 g/dL (13.5-17.5); BG VENT MODE VENT - AC; BG VENT RATE 18.0 set
[2025-11-03] MEDS: GENTAMICIN SULFATE IV SCH (17:30)
[2025-11-03] MEDS: SODIUM CHLORIDE 0.9% IV SCH (17:30)
[2025-11-03] MEDS: SUCRALFATE 1G TABLET PO SCH (19:02)
[2025-11-03] MEDS: PANTOPRAZOLE SODIUM 40 MG/VIAL IV SCH (20:12)
[2025-11-03] MEDS: LEVETIRACETAM 500MG PREMIX 100 ML IV SCH (20:12)
[2025-11-04] VITALS (107 sets, daily range): BP systolic 46–167; BP diastolic 24–125; PULSE 72–112; RESP 12–28; TEMP 36.8–36.9; O2SAT 99–100
[2025-11-04 03:11] LABS: BASOPHILS % 0.5 % (0.0-2.0); EOSINOPHILS % 1.2 % (0.0-5.0); HEMATOCRIT. 29.7 % (42.0-52.0); HEMOGLOBIN. 9.5 g/dL (14.0-18.0); LYMPHOCYTES % 15.8 % (20.0-50.0); MEAN PLATELET VOLUME 8.4 fl (7.4-10.4); MONOCYTES % 5.6 % (2.0-8.0); NEUTROPHILS % 76.9 % (40.0-76.0); PLATELET 137 x1000/uL (130-400); RED BLOOD CELL COUNT 3.31 mill/uL (4.7-6.1); RED CELL DISTRIBUTION WIDTH 16.4 % (11.6-14.6)
[2025-11-04 03:29] LABS: TRIGLYCERIDE 219 mg/dL (0-150); UREA NITROGEN BLOOD 31 mg/dL (9-23)
[2025-11-04 03:30] LABS: CREATININE 1.5 mg/dL (0.6-1.3)
[2025-11-04 03:31] LABS: PHOSPHORUS 2.2 mg/dL (2.5-4.9)
[2025-11-04] MEDS: VANCOMYCIN 1.25GM/250ML IV SCH (08:32)
[2025-11-04 08:36] LABS: BG BASE EXCESS -0.1 mmol/L (-2.0-3.0); BG CARBOXYHEMOGLOBIN 0.2 % (0.5-1.5); BG DEOXYHEMOGLOBIN 1.1 % (0.0-5.0); BG FRACTION INSPIRED OXYGEN 50; BG HCO3 ACT 23.7 mmol/L (21.0-28.0); BG METHEMOGLOBIN 0.3 % (0.5-1.5); BG OXYGEN SATURATION 98.9 % (94.0-98.0); BG OXYHEMOGLOBIN 98.4 % (94.0-98.0); BG PCO2 35.5 mmHg (35.0-48.0); BG PEEP (cmH2O) 2.0 cmH2O; BG PH 7.442 (7.350-7.450); BG PO2 135.8 mmHg (83.0-108.0); BG SAMPLE SITE RIGHT RADIAL; BG TIDAL VOLUME(mL) 500.0 mL; BG TOTAL HEMOGLOBIN 10.5 g/dL (13.5-17.5); BG TOTAL RESPIRATORY RATE 18 b/min; BG VENT MODE VENT - AC; BG VENT RATE 18.0 set
[2025-11-04] MEDS: IPRATROPIUM/ALBUTEROL 0.5-3(2.5)MG/3ML NEB HHN SCH (09:25)
[2025-11-04] MEDS: ACETYLCYSTEINE 200MG/ML 20% VIAL 4ML INH SCH (09:25)
[2025-11-04] MEDS: POTASSIUM PHOSPHATE 20 MMOL in DEXT 5% WATER 243.3333 ML IV ONE (12:15)
[2025-11-05] VITALS (103 sets, daily range): BP systolic 84–138; BP diastolic 45–92; PULSE 91–115; RESP 13–31; TEMP 36.8–37.2; O2SAT 0–100
[2025-11-05 06:40] LABS: BASOPHILS % 0.6 % (0.0-2.0); EOSINOPHILS % 1.3 % (0.0-5.0); HEMATOCRIT. 24.8 % (42.0-52.0); HEMOGLOBIN. 8.2 g/dL (14.0-18.0); LYMPHOCYTES % 19.3 % (20.0-50.0); MEAN PLATELET VOLUME 8.5 fl (7.4-10.4); MONOCYTES % 4.2 % (2.0-8.0); NEUTROPHILS % 74.6 % (40.0-76.0); PLATELET 113 x1000/uL (130-400); RED BLOOD CELL COUNT 2.77 mill/uL (4.7-6.1); RED CELL DISTRIBUTION WIDTH 16.4 % (11.6-14.6)
[2025-11-05 06:54] LABS: UREA NITROGEN BLOOD 46.0 mg/dL (9-23)
[2025-11-05 06:56] LABS: PHOSPHORUS 3.1 mg/dL (2.5-4.9)
[2025-11-05 07:03] LABS: CREATININE 2.2 mg/dL (0.6-1.3)
[2025-11-05 08:57] LABS: PROTEIN TOTAL 5.0 g/dL (6.0-8.3)
[2025-11-05 08:58] LABS: ASPARTATE AMINOTRANSFERASE 14 IU/L (<34); BILIRUBIN DIRECT 0.1 mg/dL (<=3.0)
[2025-11-05 08:59] LABS: BILIRUBIN TOTAL 0.2 mg/dL (0.1-1.0)
[2025-11-05] MEDS: CEFTAZIDIME PENTAHYDRATE 2 G in DEXT 5% WATER 100 ML IV SCH (17:45)
[2025-11-06] VITALS (100 sets, daily range): BP systolic 73–123; BP diastolic 43–85; PULSE 79–109; RESP 13–26; TEMP 36.5–37.2; O2SAT 98–100
[2025-11-06 06:27] LABS: CREATININE 2.7 mg/dL (0.6-1.3); UREA NITROGEN BLOOD 50.0 mg/dL (9-23)
[2025-11-06] MEDS: LEVETIRACETAM 500MG PREMIX 100 ML IV NR (09:09)
[2025-11-06] MEDS: PROPOFOL 10MG/ML 100ML 100 ML IV PRN (16:20)
[2025-11-06] MEDS: LACOSAMIDE 200 MG in SODIUM CHLORIDE 0.9% 100 ML IV SCH (18:27)
[2025-11-06] MEDS ORDERED: LEVETIRACETAM 1000MG PREMIX 100 ML IV SCH ×2 (21:00→21:15)
[2025-11-06] MEDS ORDERED: LEVETIRACETAM 1500MG PREMIX 100 ML IV SCH (21:00)
[2025-11-06] MEDS: LEVETIRACETAM 2,000 MG in SODIUM CHLORIDE 0.9% 100 ML IV SCH (21:03)
[2025-11-06 22:47] LABS: BASOPHILS % 1.4 % (0.0-2.0); EOSINOPHILS % 1.7 % (0.0-5.0); HEMATOCRIT. 25.2 % (42.0-52.0); HEMOGLOBIN. 8.5 g/dL (14.0-18.0); LYMPHOCYTES % 11.9 % (20.0-50.0); MEAN PLATELET VOLUME 8.8 fl (7.4-10.4); MONOCYTES % 4.3 % (2.0-8.0); NEUTROPHILS % 80.7 % (40.0-76.0); PLATELET 166 x1000/uL (130-400); RED BLOOD CELL COUNT 2.82 mill/uL (4.7-6.1); RED CELL DISTRIBUTION WIDTH 16.4 % (11.6-14.6)
[2025-11-07] VITALS (100 sets, daily range): BP systolic 87–148; BP diastolic 52–101; PULSE 63–121; RESP 13–26; TEMP 36.8–37.4; O2SAT 92–100
[2025-11-07 05:53] LABS: BASOPHILS % 0.7 % (0.0-2.0); EOSINOPHILS % 1.1 % (0.0-5.0); HEMATOCRIT. 26.6 % (42.0-52.0); HEMOGLOBIN. 8.5 g/dL (14.0-18.0); LYMPHOCYTES % 14.1 % (20.0-50.0); MEAN PLATELET VOLUME 9.4 fl (7.4-10.4); MONOCYTES % 6.2 % (2.0-8.0); NEUTROPHILS % 77.9 % (40.0-76.0); PLATELET 185 x1000/uL (130-400); RED BLOOD CELL COUNT 2.93 mill/uL (4.7-6.1); RED CELL DISTRIBUTION WIDTH 16.9 % (11.6-14.6)
[2025-11-07 08:28] LABS: CREATININE 3.1 mg/dL (0.6-1.3); TRIGLYCERIDE 323.0 mg/dL (0-150); UREA NITROGEN BLOOD 57.0 mg/dL (9-23)
[2025-11-07 13:01] LABS: INR 1.3
[2025-11-07] MEDS: MEROPENEM 1G/100ML IV SCH (17:08)
[2025-11-07] MEDS: PROPOFOL 10MG/ML 100ML 100 ML IV PRN (18:32)
[2025-11-07] MEDS: OXYMETAZOLINE HCL NASAL SPRAY 15ML BOTHNSTRLS SCH (20:54)
[2025-11-07] MEDS ORDERED: PIPERACILLIN/TAZO 3.375G/50ML 50 ML IV SCH (21:00)
[2025-11-07] MEDS ORDERED: MEROPENEM 500MG/50ML 50 ML IV SCH (21:00)
[2025-11-08] VITALS (96 sets, daily range): BP systolic 71–166; BP diastolic 44–146; PULSE 49–99; RESP 11–24; TEMP 36.8–37.3; O2SAT 90–100
[2025-11-08 05:44] LABS: PLATELET 185 x1000/uL (130-400); RED BLOOD CELL COUNT 2.34 mill/uL (4.7-6.1); RED CELL DISTRIBUTION WIDTH 16.9 % (11.6-14.6)
[2025-11-08 06:39] LABS: CREATININE 3.4 mg/dL (0.6-1.3); TRIGLYCERIDE 416.0 mg/dL (0-150); UREA NITROGEN BLOOD 59.0 mg/dL (9-23)
[2025-11-08 10:07] LABS: BG BASE EXCESS -3.6 mmol/L (-2.0-3.0); BG CARBOXYHEMOGLOBIN 0.9 % (0.5-1.5); BG DEOXYHEMOGLOBIN 3.5 % (0.0-5.0); BG FRACTION INSPIRED OXYGEN 60; BG HCO3 ACT 21.1 mmol/L (21.0-28.0); BG METHEMOGLOBIN 0.3 % (0.5-1.5); BG OXYGEN SATURATION 96.5 % (94.0-98.0); BG OXYHEMOGLOBIN 95.3 % (94.0-98.0); BG PCO2 36.4 mmHg (35.0-48.0); BG PEEP (cmH2O) 5.0 cmH2O; BG PH 7.381 (7.350-7.450); BG PO2 89.5 mmHg (83.0-108.0); BG SAMPLE SITE RIGHT RADIAL; BG TIDAL VOLUME(mL) 500.0 mL; BG TOTAL HEMOGLOBIN 6.9 g/dL (13.5-17.5); BG VENT MODE VENT - AC; BG VENT RATE 18.0 set
[2025-11-08] MEDS ORDERED: OXYMETAZOLINE HCL NASAL SPRAY 15ML BOTHNSTRLS PRN (11:00)
[2025-11-08] MEDS: IPRATROPIUM/ALBUTEROL 0.5-3(2.5)MG/3ML NEB HHN SCH (17:41)
[2025-11-08] MEDS: PROPOFOL 10MG/ML 100ML 100 ML IV PRN (19:05)
[2025-11-09] VITALS (110 sets, daily range): BP systolic 61–148; BP diastolic 45–121; PULSE 59–115; RESP 9–22; TEMP 36.7–37.2; O2SAT 90–100
[2025-11-09] MEDS: PROPOFOL 10MG/ML 100ML 100 ML IV PRN (12:09)
[2025-11-09 22:19] LABS: HEMATOCRIT. 22.4 % (42.0-52.0); HEMOGLOBIN. 7.2 g/dL (14.0-18.0); MEAN PLATELET VOLUME 9.0 fl (7.4-10.4); PLATELET 223 x1000/uL (130-400); RED BLOOD CELL COUNT 2.48 mill/uL (4.7-6.1); RED CELL DISTRIBUTION WIDTH 16.0 % (11.6-14.6)
[2025-11-09] MEDS: MAGNESIUM 2 G PREMIX 50 ML IV NR (22:32)
[2025-11-09 22:40] LABS: CREATININE 3.8 mg/dL (0.6-1.3)
[2025-11-09 22:41] LABS: TRIGLYCERIDE 206.0 mg/dL (0-150); UREA NITROGEN BLOOD 65.0 mg/dL (9-23)
[2025-11-09 22:55] LABS: EOSINOPHILS % MANUAL 1.0 % (0.0-5.0); LYMPHOCYTES % MANUAL 10.0 % (20.0-50.0); MONOCYTES % MANUAL 12.0 % (2.0-8.0); NEUTROPHILS % MANUAL 77.0 % (45.0-75.0); NUCLEATED RED BLOOD CELLS 2 /100 WBC; PLATELET ESTIMATE NORMAL
[2025-11-09] MEDS ORDERED: AMIODARONE HCL 150 MG in DEXT 5% WATER 100 ML IV ONE (23:00)
[2025-11-09] MEDS: AMIODARONE 150MG/100ML D5W 100 ML IV NR (23:12)
[2025-11-10] VITALS (103 sets, daily range): BP systolic 60–118; BP diastolic 46–95; PULSE 57–97; RESP 10–25; TEMP 36.1–36.7; O2SAT 92–100
[2025-11-10] MEDS: AMIODARONE HCL 900 MG in DEXT 5% WATER 500 ML IV SCH (00:27)
[2025-11-10] MEDS ORDERED: VASOPRESSIN 20 UNIT in SODIUM CHLORIDE 0.9% 99 ML IV PRN (01:45)
[2025-11-10] MEDS: NOREPINEPHRINE 8MG/250ML PMX 250 ML IV PRN (02:07)
[2025-11-10 02:33] LABS: HEMATOCRIT. 24.7 % (42.0-52.0); HEMOGLOBIN. 7.8 g/dL (14.0-18.0); MEAN PLATELET VOLUME 9.2 fl (7.4-10.4); PLATELET 320 x1000/uL (130-400); RED BLOOD CELL COUNT 2.71 mill/uL (4.7-6.1); RED CELL DISTRIBUTION WIDTH 16.2 % (11.6-14.6)
[2025-11-10 02:45] LABS: INR 1.1
[2025-11-10 02:56] LABS: CREATININE 3.5 mg/dL (0.6-1.3); UREA NITROGEN BLOOD 60 mg/dL (9-23)
[2025-11-10 02:58] LABS: PHOSPHORUS 5.6 mg/dL (2.5-4.9)
[2025-11-10 03:40] LABS: BAND% 4.0 % (1.0-6.0); LYMPHOCYTES % MANUAL 11.0 % (20.0-50.0); METAMYELOCYTES % 2.0 % (0-0); MONOCYTES % MANUAL 8.0 % (2.0-8.0); MYELOCYTES % 6.0 % (0-0); NEUTROPHILS % MANUAL 69.0 % (45.0-75.0); PLATELET ESTIMATE NORMAL
[2025-11-10 08:33] LABS: HEMATOCRIT. 25.4 % (42.0-52.0); HEMOGLOBIN. 8.4 g/dL (14.0-18.0); MEAN PLATELET VOLUME 9.5 fl (7.4-10.4); PLATELET 334 x1000/uL (130-400); RED BLOOD CELL COUNT 2.80 mill/uL (4.7-6.1); RED CELL DISTRIBUTION WIDTH 16.0 % (11.6-14.6)
[2025-11-10 08:55] LABS: BG BASE EXCESS -8.8 mmol/L (-2.0-3.0); BG CARBOXYHEMOGLOBIN 0.9 % (0.5-1.5); BG DEOXYHEMOGLOBIN 3.2 % (0.0-5.0); BG FRACTION INSPIRED OXYGEN 40; BG HCO3 ACT 15.6 mmol/L (21.0-28.0); BG METHEMOGLOBIN 0.1 % (0.5-1.5); BG OXYGEN SATURATION 96.8 % (94.0-98.0); BG OXYHEMOGLOBIN 95.8 % (94.0-98.0); BG PCO2 28.3 mmHg (35.0-48.0); BG PEEP (cmH2O) 5.0 cmH2O; BG PH 7.359 (7.350-7.450); BG PO2 93.3 mmHg (83.0-108.0); BG SAMPLE SITE RIGHT RADIAL; BG TIDAL VOLUME(mL) 500.0 mL; BG TOTAL HEMOGLOBIN 8.7 g/dL (13.5-17.5); BG VENT MODE VENT - AC; BG VENT RATE 18.0 set
[2025-11-10 09:06] LABS: CREATININE 4.0 mg/dL (0.6-1.3); TRIGLYCERIDE 315.0 mg/dL (0-150); UREA NITROGEN BLOOD 76.0 mg/dL (9-23)
[2025-11-10] MEDS: CITRIC ACID/SODIUM CITRATE SOLN 30ML UDC PO SCH (09:29)
[2025-11-10] MEDS: PHENYLEPHRINE 50MG/250ML PMX 250 ML IV PRN (09:30)
[2025-11-10] MEDS: SODIUM ZIRCONIUM CYCLOSILICATE 10GM/PACKET PO SCH (10:10)
[2025-11-10] MEDS: DEXT 5%/0.9% NACL 1,000 ML IV SCH (13:13)
[2025-11-10] MEDS: METOCLOPRAMIDE HCL 10MG/2ML VIAL IV SCH (13:14)
[2025-11-10] MEDS: PHENYLEPHRINE 100 MG in DEXT 5% WATER 240 ML IV PRN (16:10)
[2025-11-11] VITALS (102 sets, daily range): BP systolic 60–118; BP diastolic 52–93; PULSE 55–84; RESP 9–26; TEMP 36.4–36.7; O2SAT 99–100
[2025-11-11 05:45] LABS: HEMATOCRIT. 26.5 % (42.0-52.0); HEMOGLOBIN. 8.3 g/dL (14.0-18.0); MEAN PLATELET VOLUME 9.1 fl (7.4-10.4); PLATELET 359 x1000/uL (130-400); RED BLOOD CELL COUNT 2.79 mill/uL (4.7-6.1); RED CELL DISTRIBUTION WIDTH 16.9 % (11.6-14.6)
[2025-11-11 06:00] LABS: CREATININE 4.1 mg/dL (0.6-1.3); UREA NITROGEN BLOOD 53 mg/dL (9-23)
[2025-11-11 06:02] LABS: PHOSPHORUS 6.8 mg/dL (2.5-4.9)
[2025-11-11] MEDS: AMIODARONE 200MG TABLET PO SCH (08:37)
[2025-11-11 13:37] LABS: BAND% 7.0 % (1.0-6.0); LYMPHOCYTES % MANUAL 24.0 % (20.0-50.0); METAMYELOCYTES % 2.0 % (0-0); MONOCYTES % MANUAL 13.0 % (2.0-8.0); MYELOCYTES % 4.0 % (0-0); NEUTROPHILS % MANUAL 50.0 % (45.0-75.0); PLATELET ESTIMATE NORMAL
[2025-11-11 16:20] LABS: BAND% 2.0 % (1.0-6.0); LYMPHOCYTES % MANUAL 7.0 % (20.0-50.0); MONOCYTES % MANUAL 16.0 % (2.0-8.0); NEUTROPHILS % MANUAL 75.0 % (45.0-75.0); NUCLEATED RED BLOOD CELLS 2 /100 WBC
[2025-11-11 17:55] LABS: PLATELET ESTIMATE NORMAL
[2025-11-12] VITALS (109 sets, daily range): BP systolic 73–116; BP diastolic 47–91; PULSE 51–84; RESP 0–23; TEMP 34.4–37.1; O2SAT 95–100
[2025-11-12 05:52] LABS: HEMATOCRIT. 24.7 % (42.0-52.0); HEMOGLOBIN. 7.8 g/dL (14.0-18.0); MEAN PLATELET VOLUME 9.0 fl (7.4-10.4); PLATELET 366 x1000/uL (130-400); RED BLOOD CELL COUNT 2.65 mill/uL (4.7-6.1); RED CELL DISTRIBUTION WIDTH 17.1 % (11.6-14.6)
[2025-11-12 06:01] LABS: CREATININE 3.9 mg/dL (0.6-1.3)
[2025-11-12 06:02] LABS: PROTEIN TOTAL 5.9 g/dL (6.0-8.3); UREA NITROGEN BLOOD 64 mg/dL (9-23)
[2025-11-12 06:03] LABS: ASPARTATE AMINOTRANSFERASE 15 IU/L (<34)
[2025-11-12 06:04] LABS: BILIRUBIN DIRECT 0.1 mg/dL (<=3.0); BILIRUBIN TOTAL 0.2 mg/dL (0.1-1.0); PHOSPHORUS 5.8 mg/dL (2.5-4.9)
[2025-11-12 09:49] LABS: BG BASE EXCESS -7.3 mmol/L (-2.0-3.0); BG CARBOXYHEMOGLOBIN 0.7 % (0.5-1.5); BG DEOXYHEMOGLOBIN 2.6 % (0.0-5.0); BG FRACTION INSPIRED OXYGEN 28; BG HCO3 ACT 17.1 mmol/L (21.0-28.0); BG METHEMOGLOBIN 0.3 % (0.5-1.5); BG OXYGEN SATURATION 97.4 % (94.0-98.0); BG OXYHEMOGLOBIN 96.4 % (94.0-98.0); BG PCO2 30.5 mmHg (35.0-48.0); BG PEEP (cmH2O) 5.0 cmH2O; BG PH 7.367 (7.350-7.450); BG PO2 99.1 mmHg (83.0-108.0); BG SAMPLE SITE RIGHT RADIAL; BG TIDAL VOLUME(mL) 500.0 mL; BG TOTAL HEMOGLOBIN 8.9 g/dL (13.5-17.5); BG VENT MODE VENT - AC; BG VENT RATE 18.0 set
[2025-11-12] MEDS: LEVETIRACETAM 1000MG PREMIX 100 ML IV SCH (10:31)
[2025-11-12 10:59] LABS: BAND% 1.0 % (1.0-6.0); LYMPHOCYTES % MANUAL 19.0 % (20.0-50.0); MONOCYTES % MANUAL 5.0 % (2.0-8.0); NEUTROPHILS % MANUAL 75.0 % (45.0-75.0); NUCLEATED RED BLOOD CELLS 1 /100 WBC; PLATELET ESTIMATE NORMAL
[2025-11-12] MEDS: LACOSAMIDE 100 MG in SODIUM CHLORIDE 0.9% 50 ML IV SCH (12:23)
[2025-11-12] MEDS: SODIUM CHLORIDE 0.9% IV SCH (21:28)
[2025-11-12] MEDS: LEVETIRACETAM IV SCH (21:28)
[2025-11-12] MEDS: LACOSAMIDE 300 MG in SODIUM CHLORIDE 0.9% 100 ML IV SCH (21:28)
[2025-11-12] MEDS: METOCLOPRAMIDE HCL 10MG/2ML VIAL IV SCH (23:27)
[2025-11-13] VITALS (106 sets, daily range): BP systolic 85–134; BP diastolic 54–105; PULSE 51–89; RESP 5–22; TEMP 35.7–37.2; O2SAT 96–100
[2025-11-13 06:16] LABS: HEMATOCRIT. 23.2 % (42.0-52.0); HEMOGLOBIN. 7.4 g/dL (14.0-18.0); MEAN PLATELET VOLUME 9.0 fl (7.4-10.4); PLATELET 352 x1000/uL (130-400); RED BLOOD CELL COUNT 2.45 mill/uL (4.7-6.1); RED CELL DISTRIBUTION WIDTH 17.2 % (11.6-14.6)
[2025-11-13 06:20] LABS: CREATININE 4.1 mg/dL (0.6-1.3); UREA NITROGEN BLOOD 67.0 mg/dL (9-23)
[2025-11-13 11:17] LABS: BAND% 5.0 % (1.0-6.0); LYMPHOCYTES % MANUAL 19.0 % (20.0-50.0); MONOCYTES % MANUAL 6.0 % (2.0-8.0); NEUTROPHILS % MANUAL 70.0 % (45.0-75.0); NUCLEATED RED BLOOD CELLS 1 /100 WBC; PLATELET ESTIMATE NORMAL
[2025-11-13] MEDS: POTASSIUM CHLORIDE 20MEQ/PACKET PO NR (16:13)
[2025-11-14] VITALS (104 sets, daily range): BP systolic 73–142; BP diastolic 39–99; PULSE 49–101; RESP 0–21; TEMP 35.2–37; O2SAT 93–100
[2025-11-14 06:37] LABS: HEMATOCRIT. 22.9 % (42.0-52.0); HEMOGLOBIN. 7.3 g/dL (14.0-18.0); MEAN PLATELET VOLUME 8.9 fl (7.4-10.4); PLATELET 345 x1000/uL (130-400); RED BLOOD CELL COUNT 2.41 mill/uL (4.7-6.1); RED CELL DISTRIBUTION WIDTH 17.6 % (11.6-14.6)
[2025-11-14 06:57] LABS: CREATININE 3.9 mg/dL (0.6-1.3); UREA NITROGEN BLOOD 61 mg/dL (9-23)
[2025-11-14 06:59] LABS: PHOSPHORUS 6.4 mg/dL (2.5-4.9)
[2025-11-14 07:07] LABS: INR 1.1
[2025-11-14 10:24] LABS: BG BASE EXCESS -5.2 mmol/L (-2.0-3.0); BG CARBOXYHEMOGLOBIN 1.5 % (0.5-1.5); BG DEOXYHEMOGLOBIN 2.9 % (0.0-5.0); BG FRACTION INSPIRED OXYGEN 30; BG HCO3 ACT 19.7 mmol/L (21.0-28.0); BG METHEMOGLOBIN 0.3 % (0.5-1.5); BG OXYGEN SATURATION 97.0 % (94.0-98.0); BG OXYHEMOGLOBIN 95.3 % (94.0-98.0); BG PCO2 35.2 mmHg (35.0-48.0); BG PEEP (cmH2O) 5.0 cmH2O; BG PH 7.365 (7.350-7.450); BG PO2 95.0 mmHg (83.0-108.0); BG SAMPLE SITE RIGHT RADIAL; BG TIDAL VOLUME(mL) 500.0 mL; BG TOTAL HEMOGLOBIN 7.7 g/dL (13.5-17.5); BG TOTAL RESPIRATORY RATE 19 b/min; BG VENT MODE VENT - AC; BG VENT RATE 18.0 set
[2025-11-14] MEDS: DOPAMINE 400MG/250ML PREMIX 250 ML IV PRN (16:03)
[2025-11-15] VITALS (91 sets, daily range): BP systolic 80–138; BP diastolic 53–89; PULSE 46–114; RESP 8–19; TEMP 35.8–37.1; O2SAT 95–99
[2025-11-15 01:58] LABS: BAND% 5.0 % (1.0-6.0); LYMPHOCYTES % MANUAL 12.0 % (20.0-50.0); MONOCYTES % MANUAL 7.0 % (2.0-8.0); NEUTROPHILS % MANUAL 76.0 % (45.0-75.0)
[2025-11-15 01:59] LABS: PLATELET ESTIMATE NORMAL
[2025-11-15 09:04] LABS: BG BASE EXCESS -5.5 mmol/L (-2.0-3.0); BG CARBOXYHEMOGLOBIN 0.8 % (0.5-1.5); BG DEOXYHEMOGLOBIN 4.3 % (0.0-5.0); BG FRACTION INSPIRED OXYGEN 30; BG HCO3 ACT 19.1 mmol/L (21.0-28.0); BG METHEMOGLOBIN 0.3 % (0.5-1.5); BG OXYGEN SATURATION 95.7 % (94.0-98.0); BG OXYHEMOGLOBIN 94.6 % (94.0-98.0); BG PCO2 33.2 mmHg (35.0-48.0); BG PEEP (cmH2O) 5.0 cmH2O; BG PH 7.377 (7.350-7.450); BG PO2 82.6 mmHg (83.0-108.0); BG SAMPLE SITE RIGHT RADIAL; BG TIDAL VOLUME(mL) 500.0 mL; BG TOTAL HEMOGLOBIN 8.3 g/dL (13.5-17.5); BG VENT MODE VENT - AC; BG VENT RATE 12.0 set
[2025-11-16] VITALS (107 sets, daily range): BP systolic 82–153; BP diastolic 57–118; PULSE 45–114; RESP 8–22; TEMP 35.6–36.4; O2SAT 97–100
[2025-11-16 06:38] LABS: CREATININE 3.5 mg/dL (0.6-1.3); UREA NITROGEN BLOOD 51.0 mg/dL (9-23)
[2025-11-16 07:08] LABS: HEMATOCRIT. 23.1 % (42.0-52.0); HEMOGLOBIN. 7.1 g/dL (14.0-18.0); MEAN PLATELET VOLUME 8.8 fl (7.4-10.4); PLATELET 274 x1000/uL (130-400); RED BLOOD CELL COUNT 2.36 mill/uL (4.7-6.1); RED CELL DISTRIBUTION WIDTH 20.0 % (11.6-14.6)
[2025-11-16] MEDS: PANTOPRAZOLE SODIUM 40 MG/VIAL IV SCH (08:35)
[2025-11-16] MEDS: LACOSAMIDE 100MG/10ML ORAL SOLN GT SCH (10:25)
[2025-11-16 10:27] LABS: BAND% 6.0 % (1.0-6.0); LYMPHOCYTES % MANUAL 21.0 % (20.0-50.0); MONOCYTES % MANUAL 5.0 % (2.0-8.0); NEUTROPHILS % MANUAL 68.0 % (45.0-75.0); NUCLEATED RED BLOOD CELLS 1 /100 WBC; PLATELET ESTIMATE NORMAL
[2025-11-16] MEDS: POTASSIUM CHLORIDE 20MEQ TABLET SR PO NR (12:13)
[2025-11-17] VITALS (105 sets, daily range): BP systolic 90–138; BP diastolic 53–91; PULSE 49–87; RESP 9–19; TEMP 36.3–36.9; O2SAT 92–100
[2025-11-17 18:36] LABS: BASOPHILS % 0.1 % (0.0-2.0); EOSINOPHILS % 0.1 % (0.0-5.0); HEMATOCRIT. 26.9 % (42.0-52.0); HEMOGLOBIN. 8.6 g/dL (14.0-18.0); LYMPHOCYTES % 10.8 % (20.0-50.0); MEAN PLATELET VOLUME 8.9 fl (7.4-10.4); MONOCYTES % 3.8 % (2.0-8.0); NEUTROPHILS % 85.2 % (40.0-76.0); PLATELET 318 x1000/uL (130-400); RED BLOOD CELL COUNT 2.88 mill/uL (4.7-6.1); RED CELL DISTRIBUTION WIDTH 19.3 % (11.6-14.6)
[2025-11-17 18:41] LABS: CREATININE 3.1 mg/dL (0.6-1.3); UREA NITROGEN BLOOD 57 mg/dL (9-23)
[2025-11-17] MEDS: KCL 20MEQ/100ML PREMIX 100 ML IV SCH (20:41)
[2025-11-17 22:14] LABS: BG BASE EXCESS -3.4 mmol/L (-2.0-3.0); BG CARBOXYHEMOGLOBIN 1.9 % (0.5-1.5); BG DEOXYHEMOGLOBIN 1.8 % (0.0-5.0); BG FRACTION INSPIRED OXYGEN 30; BG HCO3 ACT 20.1 mmol/L (21.0-28.0); BG METHEMOGLOBIN 0.3 % (0.5-1.5); BG OXYGEN SATURATION 98.2 % (94.0-98.0); BG OXYHEMOGLOBIN 96.0 % (94.0-98.0); BG PCO2 29.8 mmHg (35.0-48.0); BG PEEP (cmH2O) 5.0 cmH2O; BG PH 7.447 (7.350-7.450); BG PO2 110.3 mmHg (83.0-108.0); BG SAMPLE SITE ALINE; BG TIDAL VOLUME(mL) 500.0 mL; BG TOTAL HEMOGLOBIN 7.6 g/dL (13.5-17.5); BG VENT MODE VENT - AC; BG VENT RATE 12.0 set
[2025-11-17 22:55] LABS: BASOPHILS % 0.1 % (0.0-2.0); EOSINOPHILS % 0.0 % (0.0-5.0); HEMATOCRIT. 22.5 % (42.0-52.0); HEMOGLOBIN. 7.3 g/dL (14.0-18.0); LYMPHOCYTES % 10.7 % (20.0-50.0); MEAN PLATELET VOLUME 8.4 fl (7.4-10.4); MONOCYTES % 3.9 % (2.0-8.0); NEUTROPHILS % 85.3 % (40.0-76.0); PLATELET 255 x1000/uL (130-400); RED BLOOD CELL COUNT 2.45 mill/uL (4.7-6.1); RED CELL DISTRIBUTION WIDTH 19.3 % (11.6-14.6)
[2025-11-17 23:08] LABS: CREATININE 3.0 mg/dL (0.6-1.3); UREA NITROGEN BLOOD 69 mg/dL (9-23)
[2025-11-17 23:09] LABS: ASPARTATE AMINOTRANSFERASE 15 IU/L (<34); CREATINE KINASE MB FRACTION < 0.5 ng/mL (0.5-3.6); PROTEIN TOTAL 5.0 g/dL (6.0-8.3); TROPONIN I HIGH SENSITIVITY 23 ng/L (3.0-53)
[2025-11-17 23:10] LABS: BILIRUBIN DIRECT 0.2 mg/dL (<=3.0); BILIRUBIN TOTAL 0.3 mg/dL (0.1-1.0); INR 1.2; PHOSPHORUS 6.0 mg/dL (2.5-4.9)
[2025-11-17 23:29] LABS: CLARITY URINE TURBID (CLEAR); COLOR URINE YELLOW (YELLOW); GLUCOSE URINE NEGATIVE (NEGATIVE); KETONES URINE NEGATIVE (NEGATIVE); LEUKOCYTE ESTERASE URINE 3+ (NEGATIVE); NITRITE URINE NEGATIVE (NEGATIVE); OCCULT BLOOD URINE 1+ (NEGATIVE); PH URINE 6.0 (4.5-8.0); PROTEIN URINE 2+ (NEGATIVE); SPECIFIC GRAVITY URINE 1.014 (1.005-1.030); UROBILINOGEN URINE 0.2 E.U./dL (0.2-1.0)
[2025-11-18] VITALS (107 sets, daily range): BP systolic 82–149; BP diastolic 41–97; PULSE 39–159; RESP 12–23; TEMP 36.8; O2SAT 94–100
[2025-11-18] MEDS: POTASSIUM CHLORIDE 20MEQ TABLET SR PO NR (00:24)
[2025-11-18] MEDS: KCL 20MEQ/100ML PREMIX 100 ML IV NR (01:48)
[2025-11-18 02:43] LABS: SQUAMOUS EPITHELIAL CELL URINE FEW /lpf (RARE/1+)
[2025-11-18 02:44] LABS: RBC URINE 0-2 /hpf (0-2)
[2025-11-18 02:46] LABS: BACTERIA URINE 1+; YEAST URINE 2+
[2025-11-18 04:47] LABS: BASOPHILS % 0.1 % (0.0-2.0); EOSINOPHILS % 0.0 % (0.0-5.0); HEMATOCRIT. 23.2 % (42.0-52.0); HEMOGLOBIN. 7.4 g/dL (14.0-18.0); LYMPHOCYTES % 11.1 % (20.0-50.0); MEAN PLATELET VOLUME 8.0 fl (7.4-10.4); MONOCYTES % 4.2 % (2.0-8.0); NEUTROPHILS % 84.6 % (40.0-76.0); PLATELET 265 x1000/uL (130-400); RED BLOOD CELL COUNT 2.53 mill/uL (4.7-6.1); RED CELL DISTRIBUTION WIDTH 18.6 % (11.6-14.6)
[2025-11-18 05:01] LABS: CREATININE 2.8 mg/dL (0.6-1.3); UREA NITROGEN BLOOD 62 mg/dL (9-23)
[2025-11-18 05:02] LABS: PROTEIN TOTAL 5.5 g/dL (6.0-8.3); TROPONIN I HIGH SENSITIVITY 26 ng/L (3.0-53)
[2025-11-18 05:03] LABS: ASPARTATE AMINOTRANSFERASE 15 IU/L (<34); BILIRUBIN DIRECT 0.2 mg/dL (<=3.0); BILIRUBIN TOTAL 0.4 mg/dL (0.1-1.0); CREATINE KINASE MB FRACTION 0.6 ng/mL (0.5-3.6); PHOSPHORUS 5.7 mg/dL (2.5-4.9)
[2025-11-18] MEDS: KCL 20MEQ/100ML PREMIX 100 ML IV SCH ×2 (05:32→13:03)
[2025-11-18 06:02] LABS: INR 1.2
[2025-11-18 08:12] LABS: CLARITY URINE TURBID (CLEAR); COLOR URINE YELLOW (YELLOW); GLUCOSE URINE NEGATIVE (NEGATIVE); KETONES URINE NEGATIVE (NEGATIVE); LEUKOCYTE ESTERASE URINE 2+ (NEGATIVE); NITRITE URINE NEGATIVE (NEGATIVE); OCCULT BLOOD URINE TRACE (NEGATIVE); PH URINE 6.5 (4.5-8.0); PROTEIN URINE 2+ (NEGATIVE); SPECIFIC GRAVITY URINE 1.014 (1.005-1.030); UROBILINOGEN URINE 0.2 E.U./dL (0.2-1.0)
[2025-11-18 09:21] LABS: BG BASE EXCESS -2.4 mmol/L (-2.0-3.0); BG CARBOXYHEMOGLOBIN 1.5 % (0.5-1.5); BG DEOXYHEMOGLOBIN 1.8 % (0.0-5.0); BG FRACTION INSPIRED OXYGEN 30; BG HCO3 ACT 21.7 mmol/L (21.0-28.0); BG METHEMOGLOBIN 0.1 % (0.5-1.5); BG OXYGEN SATURATION 98.2 % (94.0-98.0); BG OXYHEMOGLOBIN 96.6 % (94.0-98.0); BG PCO2 34.2 mmHg (35.0-48.0); BG PEEP (cmH2O) 5.0 cmH2O; BG PH 7.420 (7.350-7.450); BG PO2 109.7 mmHg (83.0-108.0); BG SAMPLE SITE ALINE; BG TIDAL VOLUME(mL) 500.0 mL; BG TOTAL HEMOGLOBIN 8.4 g/dL (13.5-17.5); BG TOTAL RESPIRATORY RATE 14 b/min; BG VENT MODE VENT - AC; BG VENT RATE 12.0 set
[2025-11-18 10:41] LABS: BASOPHILS % 0.1 % (0.0-2.0); EOSINOPHILS % 0.0 % (0.0-5.0); HEMATOCRIT. 22.0 % (42.0-52.0); HEMOGLOBIN. 7.1 g/dL (14.0-18.0); LYMPHOCYTES % 10.9 % (20.0-50.0); MEAN PLATELET VOLUME 8.3 fl (7.4-10.4); MONOCYTES % 4.1 % (2.0-8.0); NEUTROPHILS % 84.9 % (40.0-76.0); PLATELET 242 x1000/uL (130-400); RED BLOOD CELL COUNT 2.39 mill/uL (4.7-6.1); RED CELL DISTRIBUTION WIDTH 18.8 % (11.6-14.6)
[2025-11-18 10:53] LABS: RBC URINE NONE SEEN /hpf (0-2); SQUAMOUS EPITHELIAL CELL URINE 1+ /lpf (RARE/1+)
[2025-11-18 10:54] LABS: YEAST URINE 4+
[2025-11-18 10:58] LABS: CREATINE KINASE MB FRACTION 0.9 ng/mL (0.5-3.6)
[2025-11-18 10:59] LABS: TROPONIN I HIGH SENSITIVITY 15 ng/L (3.0-53)
[2025-11-18 11:00] LABS: UREA NITROGEN BLOOD 47 mg/dL (9-23)
[2025-11-18 11:01] LABS: ASPARTATE AMINOTRANSFERASE 15 IU/L (<34); BILIRUBIN DIRECT 0.1 mg/dL (<=3.0); INR 1.3
[2025-11-18 11:02] LABS: BILIRUBIN TOTAL 0.2 mg/dL (0.1-1.0); PHOSPHORUS 3.3 mg/dL (2.5-4.9)
[2025-11-18 11:17] LABS: CREATININE 1.5 mg/dL (0.6-1.3)
[2025-11-18 11:19] LABS: PROTEIN TOTAL 3.1 g/dL (6.0-8.3)
[2025-11-18 11:42] LABS: BACTERIA URINE 1+
[2025-11-18 11:56] LABS: CLARITY URINE CLOUDY (CLEAR); COLOR URINE YELLOW (YELLOW); GLUCOSE URINE NEGATIVE (NEGATIVE); KETONES URINE NEGATIVE (NEGATIVE); LEUKOCYTE ESTERASE URINE 2+ (NEGATIVE); NITRITE URINE NEGATIVE (NEGATIVE); OCCULT BLOOD URINE 1+ (NEGATIVE); PH URINE 6.5 (4.5-8.0); PROTEIN URINE 1+ (NEGATIVE); SPECIFIC GRAVITY URINE 1.013 (1.005-1.030); UROBILINOGEN URINE 0.2 E.U./dL (0.2-1.0)
[2025-11-18 12:12] LABS: SQUAMOUS EPITHELIAL CELL URINE NONE SEEN /lpf (RARE/1+)
[2025-11-18 12:13] LABS: BACTERIA URINE TRACE; YEAST URINE 4+
[2025-11-18] MEDS: POTASSIUM CHLORIDE 20MEQ/PACKET PO NR (12:29)
[2025-11-18] MEDS: CALCIUM GLUCONATE 1GM PREMIX 50 ML IV NR (12:30)
[2025-11-18] MEDS: MAGNESIUM 4 G PREMIX 100 ML IV NR (12:30)
[2025-11-19] VITALS (102 sets, daily range): BP systolic 61–150; BP diastolic 34–98; PULSE 48–91; RESP 6–19; TEMP 36.2–36.9; O2SAT 60–100
[2025-11-19 06:53] LABS: BASOPHILS % 0.1 % (0.0-2.0); EOSINOPHILS % 0.0 % (0.0-5.0); HEMATOCRIT. 21.8 % (42.0-52.0); LYMPHOCYTES % 10.5 % (20.0-50.0); MEAN PLATELET VOLUME 8.4 fl (7.4-10.4); MONOCYTES % 4.7 % (2.0-8.0); NEUTROPHILS % 84.7 % (40.0-76.0); PLATELET 217 x1000/uL (130-400); RED BLOOD CELL COUNT 2.39 mill/uL (4.7-6.1); RED CELL DISTRIBUTION WIDTH 18.1 % (11.6-14.6)
[2025-11-19 06:56] LABS: HEMOGLOBIN. 7.0 g/dL (14.0-18.0)
[2025-11-19 06:58] LABS: UREA NITROGEN BLOOD 62 mg/dL (9-23)
[2025-11-19 07:00] LABS: PHOSPHORUS 5.1 mg/dL (2.5-4.9)
[2025-11-19 08:20] LABS: CREATININE 2.5 mg/dL (0.6-1.3)
[2025-11-19] MEDS: MORPHINE SULFATE 4 MG/ML INJ (FOR IV/IM USE) IV PRN (12:34)
[2025-11-19] MEDS ORDERED: MORPHINE SULFATE/PF 1 MG/ML 100 MG in BAG 1 EACH IV PRN (15:00)
[2025-11-19] MEDS: MORPHINE SULFATE 250 MG in DEXT 5% WATER 250 ML IV PRN (15:58)
== END 2025-11-20 01:00 | DRG 870 ==
LOC: ER 10:32 → EDBEDREQSVC 11:36 → EDBEDREQTM 13:06 → EDBEDREQ 13:06 → ENRESERV 17:58 → 8WST 18:02 → 5EST 10-19 15:00 → MICUNO 10-19 19:00 → 5EST 10-27 00:45 → CVICU 10-31 00:52 → 5EST 10-31 08:23 → CVICU 10-31 08:24 → 6EST 11-20 00:12 → CVICU 11-20 00:22
PROVIDERS: ADMIT Internal Medicine; ATTEND Internal Medicine
PROC: 0T9430Z Drainage of Left Kidney Pelvis with Drainage Device, Percutaneous Approach (ICD-10-PCS; 2025-10-18)
PROC: 02HV33Z Insertion of Infusion Device into Superior Vena Cava, Percutaneous Approach (ICD-10-PCS; 2025-10-19)
PROC: B548ZZA Ultrasonography of Superior Vena Cava, Guidance (ICD-10-PCS; 2025-10-19)
PROC: 5A1D70Z Performance of Urinary Filtration, Intermittent, Less than 6 Hours Per Day (ICD-10-PCS; 2025-10-19)
PROC: 5A1D70Z Performance of Urinary Filtration, Intermittent, Less than 6 Hours Per Day (ICD-10-PCS; 2025-10-20)
PROC: 05HY33Z Insertion of Infusion Device into Upper Vein, Percutaneous Approach (ICD-10-PCS; 2025-10-21)
PROC: B54NZZA Ultrasonography of Left Upper Extremity Veins, Guidance (ICD-10-PCS; 2025-10-21)
PROC: 5A1D70Z Performance of Urinary Filtration, Intermittent, Less than 6 Hours Per Day (ICD-10-PCS; 2025-10-22)
PROC: 5A1D70Z Performance of Urinary Filtration, Intermittent, Less than 6 Hours Per Day (ICD-10-PCS; 2025-10-25)
PROC: 30233N1 Transfusion of Nonautologous Red Blood Cells into Peripheral Vein, Percutaneous Approach (ICD-10-PCS; 2025-10-26)
PROC: 5A1955Z Respiratory Ventilation, Greater than 96 Consecutive Hours (ICD-10-PCS; principal; 2025-11-03)
PROC: 0BH17EZ Insertion of Endotracheal Airway into Trachea, Via Natural or Artificial Opening (ICD-10-PCS; 2025-11-03)
PROC: 5A12012 Performance of Cardiac Output, Single, Manual (ICD-10-PCS; 2025-11-03)
PROC: 4A00X4Z Measurement of Central Nervous Electrical Activity, External Approach (ICD-10-PCS; 2025-11-06)
PROC: 4A00X4Z Measurement of Central Nervous Electrical Activity, External Approach (ICD-10-PCS; 2025-11-07)
PROC: 4A00X4Z Measurement of Central Nervous Electrical Activity, External Approach (ICD-10-PCS; 2025-11-12)
PROC: 03HY32Z Insertion of Monitoring Device into Upper Artery, Percutaneous Approach (ICD-10-PCS; 2025-11-17)
DX: A41.01 Sepsis due to Methicillin susceptible Staphylococcus aureus (principal); G92.8 Other toxic encephalopathy; R65.21 Severe sepsis with septic shock; J96.01 Acute respiratory failure with hypoxia; J18.9 Pneumonia, unspecified organism; J69.0 Pneumonitis due to inhalation of food and vomit; J96.02 Acute respiratory failure with hypercapnia; N17.0 Acute kidney failure with tubular necrosis; G93.1 Anoxic brain damage, not elsewhere classified; G40.901 Epilepsy, unspecified, not intractable, with status epilepticus; N13.6 Pyonephrosis; K92.0 Hematemesis; L02.414 Cutaneous abscess of left upper limb; A41.59 Other Gram-negative sepsis; I46.9 Cardiac arrest, cause unspecified; B96.4 Proteus (mirabilis) (morganii) as the cause of diseases classified elsewhere; K76.0 Fatty (change of) liver, not elsewhere classified; I11.0 Hypertensive heart disease with heart failure; E87.20 Acidosis, unspecified; E87.0 Hyperosmolality and hypernatremia; E87.1 Hypo-osmolality and hyponatremia; N20.2 Calculus of kidney with calculus of ureter; I48.92 Unspecified atrial flutter; R18.8 Other ascites; D62 Acute posthemorrhagic anemia; I47.10 Supraventricular tachycardia, unspecified; I82.91 Chronic embolism and thrombosis of unspecified vein; R04.2 Hemoptysis; E83.39 Other disorders of phosphorus metabolism; E83.41 Hypermagnesemia; E83.51 Hypocalcemia; R13.10 Dysphagia, unspecified; I48.91 Unspecified atrial fibrillation; L30.9 Dermatitis, unspecified; M54.30 Sciatica, unspecified side; I44.1 Atrioventricular block, second degree; I87.2 Venous insufficiency (chronic) (peripheral); K02.9 Dental caries, unspecified; E83.42 Hypomagnesemia; L22 Diaper dermatitis; R31.0 Gross hematuria; E87.6 Hypokalemia; E78.00 Pure hypercholesterolemia, unspecified; F41.9 Anxiety disorder, unspecified; Z66 Do not resuscitate; L98.8 Other specified disorders of the skin and subcutaneous tissue; E87.8 Other disorders of electrolyte and fluid balance, not elsewhere classified; G89.29 Other chronic pain; K59.00 Constipation, unspecified; I45.10 Unspecified right bundle-branch block; H55.00 Unspecified nystagmus; Z51.5 Encounter for palliative care; Z79.899 Other long term (current) drug therapy; Z74.01 Bed confinement status; Z87.442 Personal history of urinary calculi
CPT/HCPCS: 20611; 31500; 31720; 36415; 36556; 36573; 36600; 70551; 71045; 73080; 74018; 74176; 76700; 76705; 76770; 77001; 78580; 80048; 80051; 80053; 80061; 80076; 80170; 80202; 80305; 80320; 80339; 81003; 82140; 82150; 82248; 82270; 82375; 82533; 82550; 82553; 82607; 82728; 82746; 82805; 82962; 83540; 83550; 83605; 83735; 83880; 83930; 83935; 84100; 84145; 84300; 84439; 84443; 84478; 84484; 85014; 85018; 85025; 85027; 85044; 85362; 85379; 85384; 85651; 86141; 86705; 86709; 86850; 86900; 86920; 87070; 87077; 87186; 87340; 87426; 90935; 93005; 93306; 93923; 93970; 94003; 94070; 94640; 94664; 95816; 96365; 96375; 98960; A4606; A4615; A6449; C1725; C1729; C1752; C1769; J0282; J0612; J0713; J1265; J1580; J1630; J1815; J1953; J2003; J2060; J2185; J2270; J2371; J2405; J2470; J2543; J2704; J2765; J3373; J3475; J3480; J3490; J7030; J7040; J7042; J7050; J7060; J7120; J7608; P9016; A5200; G0480